=== PATIENT | male | born 1945 | race Caucasian/White ===

== ENCOUNTER → 2025-04-12 | Outpatient (REF) | payer MEDICARE, OTHER ==
[~2025-04-12] MED LIST: REGADENOSON 0.4 MG/5 ML SYR IV ONE
== END ==
LOC: NM 09:30
PROVIDERS: ATTEND Internal Medicine Cardiovascular Disease
DX: I25.709 Atherosclerosis of coronary artery bypass graft(s), unspecified, with unspecified angina pectoris (principal); Z86.718 Personal history of other venous thrombosis and embolism
CPT/HCPCS: 78452; 93017; A9502; J2785